=== PATIENT | male | born 1965 | race Caucasian/White ===

== ENCOUNTER → 2017-09-28 | Day surgery (SDC) | payer OTHER, BC ==
[2017-09-20 16:05] VITALS: Ht 182.9 cm; Wt 110.5 kg
--- NOTE | 2017-09-27 22:24 | History and Physical ---
History & Physical Date September 27, 2017. 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 He had been treated conservatively but has failed the conservative management. He is now being set up for surgical tx. Past Medical/Surgical History Medical Problems: (1) Aortic aneurysm (2) Bronchitis (3) Emphysema/COPD (4) Hypertension (5) Migraine Surgical Problems: (1) H/O hernia repair (2) S/P knee replacement (3) S/P tonsillectomy Allergies Coded Allergies: No Known Allergies (Unverified , 09/20/17) Home Medications Scheduled Amlodipine (Norvasc), 10 MG PO QPM Aspirin (Aspirin Ec), 81 MG PO QPM Citalopram (Citalopram Hydrobromide), 1 TAB PO HS Metoprolol Succinate (Toprol Xl), 25 MG PO QAM Multivitamin (Multivitamin), 1 TAB PO QAM Simvastatin (Zocor), 20 MG PO QPM Sumatriptan Succinate (Imitrex), 100 MG PO PRN Scheduled PRN Ibuprofen (Motrin), 800 MG PO Q8H PRN for PRN Lorazepam (Ativan), 1 MG PO TID PRN for PRN Physical Examination Skin: warm/dry, no rash Eyes: normal inspection ENT: normal ENT inspection Head: normocephalic, atraumatic Neck: supple, no adenopathy, trachea midline Respiratory/Chest: lungs clear, normal breath sounds, no respiratory distress Cardiovascular: regular rate, rhythm Abdomen / GI: normal bowel sounds, non tender Extremities: + pertinent finding (Right foot: Tender 1st MTP joint. Painful PROM. Dorsal prominence at the dorsal 1st MTP with decreased ROM.) Neurologic/Psych: no motor/sensory deficits, alert, oriented x 3 Diagnosis right foot hallux rigidus Plan of Treatment Recommend a right foot 1st MTP joint hemiarthroplasty with Cartiva implant. All potential risks, benefits, complications, alternatives, and rehab have been discussed with the patient and he wishes to proceed. He will be scheduled for 09.28.17.
[~2017-09-28] VITALS: Ht 182.9 cm; Wt 110.5 kg
[~2017-09-28] MED LIST: AMLO-114 PO; ASPI81TA28 PO; ATROPINE SULFATE 0.1 MG/ML 5ML SYR IV PRN; ATV/1 PO; CEFAZOLIN 2000MG IV PUSH 15 ML IV SCH; CITA40TA4 PO; DEXAMETHASONE SOD INJ 4 MG/ML VIAL ONE; EpHEDrine SULFATE 50MG/5ML SYR ONE; EpHEDrine SULFATE INJ 50 MG/ML AMP IV PRN; FENTANYL CITRATE INJ 50 MCG/1 ML 2 ML VIAL IV PRN; FENTANYL CITRATE INJ 50 MCG/1 ML 2 ML VIAL ONE; HYDROmorphone INJ 0.5 MG/0.5 ML SYR IV PRN; IBUP-1428 PO; LACTATED RINGER'S 1000ML 1,000 ML IV SCH; LIDOCAINE HCL 2% 2 ML VIAL (20MG/ML) ONE; METO25TA4 PO; MIDAZOLAM HCL 1 MG/ML 2ML VIAL ONE; MULT-506 PO; NURSING VERBAL MED ORDER ONE; ONDANSETRON INJ 2 MG/ML 2 ML VIAL IV PRN; ONDANSETRON INJ 2 MG/ML 2 ML VIAL ONE; OXYC-57 PO; OXYCODONE/ACETAMINOPHEN 5-325 TAB PO PRN; OXYCODONE/ACETAMINOPHEN 5-325 TAB PO SCH; PHENYLEPHRINE 100MCG/ML 5ML SYR ONE; PROM25TA9 PO; PROPOFOL IV EMULSION 10 MG/ML 20 ML VIAL ONE; ROPIVACAINE 0.5% 5 MG/ML 30 ML VIAL ONE; SIMV20TA2 PO; SUMA100T16 PO
[2017-09-28 12:51] VITALS: BP 117/74; PULSE 67; TEMP 36.8; O2SAT 95
--- NOTE | 2017-09-28 16:02 | Discharge Instructions ---
Discharge Instructions Date of Service September 28, 2017. Admission Reason for Admission: Right Foot Hallux Rigidus Discharge Discharge Diagnosis / Problem: right foot hallux rigidus Discharge Goals Goal(s): Decrease discomfort, Improve function Activity Recommendations Activity Limitations: per Instructions/Follow-up section Weightbearing Status: Right partial (Heel weightbearing only) . Instructions / Follow-Up Instructions / Follow-Up ACTIVITY RECOMMENDATIONS: Limitations: Heel weight bearing only if able to tolerate. SPECIAL CARE INSTRUCTIONS: * Continue to take Aspirin 81 mg daily. * You may start gentle passive range of motion with the great toe. Use your hand to move the great toe for slight motion. * Some drainage onto the dressing is normal and is no cause for alarm. * Some swelling is natural especially after walking. * When resting, keep your foot elevated above the level of your heart. * Call [facility] if you notice: -Increased drainage -Fever over 101 degrees F -Severe constant pain BANDAGE: * Leave bandage/cast in place unless otherwise directed. * Keep bandage/cast dry at all times. PIN CARE: * Leave pins alone. * If pins come loose or fall out, notify physician. FOLLOW UP VISIT WITH DR. MARTINES If appointment is not already scheduled: Please call [facility] after you get home today to schedule a follow-up appointment for [address] Martines at . Current Hospital Diet Patient's current hospital diet: Discharge Diet Recommended Diet: Regular Diet Pending Studies Studies pending at discharge: no Medical Emergencies . Who to Call and When: Medical Emergencies: If at any time you feel your situation is an emergency, please call 911 immediately. . Non-Emergent Contact Non-Emergency issues call your: Surgeon Call Non-Emergent contact if: temperature is above 101, your pain is not controlled, your pain is worsening . "Provider Documentation" section prepared by Jacob Parrish. .
--- NOTE | 2017-09-28 16:26 | History & Physical Bridge Note ---
H&P Re-Evaluation Bridge Note: I have examined the patient, reviewed the History & Physical and in the interval since the performance of the History & Physical I have noted the following changes of clinical significance: No changes noted
--- NOTE | 2017-09-28 19:44 | [facility] Post Operative Brief Note ---
Immediate Operative Summary Operative Date September 28, 2017. Pre-Operative Diagnosis Right foot hallux rigidus, First metatarsophalangeal joint DJD Post-Operative Diagnosis Right foot hallux rigidus, First metatarsophalangeal joint DJD Procedure(s) Performed Right Foot Hemiarthroplasty first metatarsophalangeal joint with Cartiva Implant Surgeon Dr. Dale Armenta Sales Agent Surgeon(s) None Estimated Blood Loss 1cc Findings Consistent with Post-Op Diagnosis Specimens None Drains None Anesthesia Type General Regional Complication(s) none Disposition Accompanied Pt To Recover: no Disposition: Recovery Room / PACU
--- NOTE | 2017-09-28 20:19 | Anesthesiology Progress Note ---
Anesthesia Post Op Note Date & Time September 28, 2017 at 20:19 Vital Signs Pain Intensity: 0 Vital Signs Past 12 Hours Date Time Temp Pulse Resp B/P (MAP) Pulse Ox O2 Delivery O2 Flow Rate FiO2 09/28/17 20:10 73 16 124/73 100 Oxymask 10 09/28/17 20:00 67 17 119/80 97 Oxymask 10 09/28/17 19:50 36.0 69 12 118/76 99 Oxymask 10 09/28/17 12:51 36.8 67 20 117/74 (88) 95 Room Air Notes Mental Status: alert / awake / arousable, participated in evaluation Pt Amnestic to Procedure: Yes Nausea / Vomiting: adequately controlled Pain: adequately controlled Airway Patency, RR, SpO2: stable & adequate BP & HR: stable & adequate Hydration State: stable & adequate Anesthetic Complications: no major complications apparent
[2017-09-28 20:34] VITALS: BP 130/84; PULSE 68; TEMP 36.4; O2SAT 93
--- NOTE | 2017-09-28 20:48 | DIAGNOSTIC IMAGING REPORT ---
R FOOT MIN 3 VIEWS ROUTINE HISTORY: 52 years-old Male RT FOOT HEMIARTHROPLASTY WITH CARTIVA IMPLANT postoperative changes of the first digit COMPARISON: Right foot radiographs of same day TECHNIQUE: 4 spot fluoroscopic images of the right foot were obtained utilizing 28 seconds fluoroscopy time FINDINGS: There is a K wire device projecting over the first metatarsal on the first image. Postoperative swelling with deep tissue air about the first MTP joint. Postoperative changes of the first MTP joint seen with lucency involving the first metatarsal head. IMPRESSION: Fluoroscopic assistance as above. Please see operative report for further details. The above report was generated using voice recognition software. It may contain grammatical, syntax or spelling errors. Electronically signed by: Glen Delgado M.D. 09/28/2017 8:46 PM Dictated Date/Time: 09/28/2017 8:45 PM
--- NOTE | 2017-09-28 20:50 | DIAGNOSTIC IMAGING REPORT ---
R FOOT MIN 3 VIEWS ROUTINE HISTORY: 52 years-old Male post-op postoperative changes of the first right MTP joint COMPARISON: Spot fluoroscopic images of same day TECHNIQUE: 3 views of the right foot FINDINGS: Subchondral lucency involving the first metatarsal head suggests postoperative changes with expected postsurgical soft tissue swelling and deep tissue air about the first MTP joint. No acute fracture, dislocation or retained foreign body identified. Moderate Achilles and small plantar enthesophyte about the calcaneus. IMPRESSION: Postoperative changes of the first metatarsal head without complication identified. Please see operative report for further details. The above report was generated using voice recognition software. It may contain grammatical, syntax or spelling errors. Electronically signed by: Glen Delgado M.D. 09/28/2017 8:48 PM Dictated Date/Time: 09/28/2017 8:47 PM
[2017-09-28 20:56] VITALS: BP 129/78; PULSE 71; TEMP 36.2; O2SAT 94
--- NOTE | 2017-09-28 21:54 | OPERATIVE REPORT ---
DATE OF OPERATION: 09/28/2017 PREOPERATIVE DIAGNOSES: 1. Right foot first metatarsophalangeal joint degenerative joint disease. 2. Hallux rigidus. POSTOPERATIVE DIAGNOSES: 1. Right foot first metatarsophalangeal joint degenerative joint disease. 2. Hallux rigidus. PROCEDURE: 1. Right foot first metatarsophalangeal joint hemiarthroplasty using a 10 mm Cartiva implant. 2. Exostectomy of the first metatarsophalangeal joint. SURGEON: Dr. Armenta. MANAGER WEB: None. ANESTHESIA: General with regional. SPECIMENS: Bone and tissue. DRAINS: None. COMPLICATIONS: None. BLOOD LOSS: 1 mL PERTINENT HISTORY: This is a 52-year-old gentleman who had chronic progressive and ongoing right foot first metatarsophalangeal joint loss of range of motion, pain and swelling resistant to conservative measures including anti-inflammatories, steroid injections, modification of activity, modification of shoe wear. Radiographs demonstrate significant loss of joint space of the right foot first metatarsophalangeal joint with marginal osteophytes and subchondral sclerosis. The patient was scheduled for surgery as indicated. All potential risks, benefits, complications, alternatives, rehab potential for incomplete relief of symptoms, need for further surgery, DVT, PE, , persistent pain, swelling, scarring, weakness, neurovascular injury, wound complications, hardware failure, nonunion, malunion were discussed with the patient. Patient decided to proceed with the procedure as indicated. DESCRIPTION OF PROCEDURE: Patient had a popliteal block in the preop holding area. The patient was taken to the operative suite, placed supine on the table. I reviewed the consent and identification of proper operative site, the patient was then anesthetized and LMA was placed. Tourniquet was applied high on the right thigh over cast padding; however, it was not used during the case. The right lower extremity was then sterilely prepped and draped in usual fashion, elevated and exsanguinated with an Esmarch bandage and Esmarch tourniquet applied over sterile surgical towel at the level of the ankle. Next, a 15 blade scalpel was used to make an incision over the dorsum of the right foot first metatarsophalangeal joint. The incision was deepened through the subcutaneous tissue. Meticulous hemostasis was achieved with electrocautery. Full thickness skin flaps were developed. The extensor hallucis longus was then freed with a 15 blade scalpel and retracted laterally and protected. The Weitlaner retractor was placed in the joint to retract the tendon and then a 15 blade scalpel was then used to make a deep incision in the capsule. This incision was then used to elevate the capsule both medially and laterally. A large McGlamry elevator was then placed in the first metatarsophalangeal joint releasing soft tissue contractures. Next, the range of motion was performed and noted to have approximately 90 degrees of dorsiflexion and 30 degrees of plantar flexion. This was then followed by hyperplantarflexion of the first metatarsophalangeal joint and removal of all bony exostoses of the first metatarsal head and the proximal phalanx with a rongeur. Next, a guide pin for the Cartiva implant system was then placed into the first metatarsal head in slight valgus and slight dorsiflexion to account for the resting position of the first metatarsophalangeal joint with regular standing and walking. Next, the core reamer was then applied over the guide pin under live fluoroscopic assistance allowing a buffer of approximately 1.5-2 mm before fully seating reamer to allow for slight prominence of the implant. The wound was copiously irrigated with sterile normal saline and the guide pin was removed. Cartiva implant was then impacted into the distal aspect of the first metatarsal with proper deployment of the implant. Next, range of motion was tested and noted to have 90 degrees dorsiflexion and 25 degrees of plantar flexion without any evidence of impingement. Radiographs were obtained in AP and lateral projections noting improvement of joint space and alignment. Next, the wound was copiously irrigated with sterile normal saline until clear. Dorsal capsule was closed using 2-0 Vicryl sutures. The skin was then closed using 4-0 nylon sutures. A sterile compressive forefoot dressing was applied overwrapped with a Coban. The tourniquet was released. The patient was awakened and taken to recovery in stable condition. I attest to the content of the Intraoperative Record and any orders documented therein. Any exception s are noted below.
== END | disposition home or self-care (01) ==
LOC: C.ACU 12:09
PROVIDERS: ATTEND Orthopaedic Surgery Sports Medicine
DX: M20.21 Hallux rigidus, right foot (principal); M19.071 Primary osteoarthritis, right ankle and foot; J44.9 Chronic obstructive pulmonary disease, unspecified; I10 Essential (primary) hypertension; E78.5 Hyperlipidemia, unspecified; M19.90 Unspecified osteoarthritis, unspecified site; E66.9 Obesity, unspecified; F32.9 Major depressive disorder, single episode, unspecified; K42.9 Umbilical hernia without obstruction or gangrene; Q24.8 Other specified congenital malformations of heart; Z79.82 Long term (current) use of aspirin; Z87.442 Personal history of urinary calculi; Z90.89 Acquired absence of other organs; Z96.659 Presence of unspecified artificial knee joint; Z79.899 Other long term (current) drug therapy